=== PATIENT | female | born 1985 | race American Indian/Alaskan Native ===

== ENCOUNTER 2017-01-12 10:46 | Emergency (ER) | payer OTHER, MEDICAID ==
[2017-01-12 11:13] VITALS: BP 132/73
[2017-01-12 11:32] LABS: Bilirubin,Urine NEG (Negative); Blood,Urine MOD (Negative); Ketones,Urine NEG (Negative); Leukocyte Esterase,Urine NEG (Negative); Mucus,Urine 3+ /HPF; Nitrite,Urine NEG (Negative); Protein,Urine <15 mg/dL mg/dL (Negative); Urobilinogen,Urine < 2.0 mg/dL (<2.0)
[2017-01-12] MEDS ORDERED: TYLENOL #3 PO ONE (12:31)
[2017-01-12 13:26] LABS: Basophils % (Auto) 0.7 % (0.0-1.8); Eosinophils % (Auto) 0.9 % (0.0-4.3); Hematocrit 38.5 % (30.3-42.9); Hemoglobin 12.4 gm/dl (10.1-14.3); Mean Corpuscular HGB Conc 32 % (30-34); Mean Corpuscular Hemoglobin 31 pg (28-32); Mean Corpuscular Volume 96 fl (79-97); Platelet Count 201 K/mm3 (140-440); Red Blood Count 4.01 M/mm3 (3.65-5.03)
--- NOTE | 2017-01-12 13:30 | Emergency Department Report ---
HPI - General Chief Complaint: Urogenital-Female Time Seen by Provider: 01/12/17 12:09 - HPI HPI: 31-year-old female presents to ED complaining of vaginal bleeding 2 weeks. Patient states she started something that felt like a period on 12/31/2016 and has not stopped bleeding since then. Patient states initially the brownish heavy clotting and has turned bright red with clotting. Patient states only medication she takes is her just active pills which she started taking November 2016. Patient states she had a regular cycle to last month. Patient also remains severe abdominal cramping pain and generalized aching. Patient states she called her PATTERN P[facility]CHER and was told given him appointment to come in on Saturday but she couldn't wait she came in today to be assessed. Patient denies fevers/chills/nausea/vomiting/abdominal pain/shortness of breath/ chest pain. 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 - Social History Smoking Status: Never Smoker Substance Use Type: None - Medications Home Medications: Home Medications Medication Instructions Recorded Confirmed Last Taken Type Acetaminophen with Codeine 1 each PO Q6H PRN #16 tablet 03/18/15 Unknown Rx [Acetaminophen-Codeine #4 TAB] Cyclobenzaprine [Flexeril 10mg] 10 mg PO Q12H PRN #21 tablet 03/18/[address] [Dylan Dr] 75 mg PO Q12H #30 tablet 03/18/15 Unknown Rx Ibuprofen [Motrin] 800 mg PO Q8HR PRN #30 tablet 01/12/17 Unknown Rx traMADol [Ultram 50 MG tab] 50 mg PO Q6HR PRN #30 tablet 01/12/17 Unknown Rx ED Review of Systems ROS: Stated complaint: ON CYCLE X 2 WKS BAD CRAMPS/ Other details as noted in HPI Constitutional: denies: chills, fever, weakness Eyes: denies: eye pain, eye discharge, vision change ENT: denies: ear pain, throat pain, dental pain, hearing loss, epistaxis, congestion Respiratory: denies: cough, shortness of breath, SOB with exertion, wheezing Cardiovascular: denies: chest pain, palpitations, edema Endocrine: no symptoms reported. denies: increased hunger Gastrointestinal: denies: abdominal pain, nausea, vomiting, diarrhea, constipation, hematemesis, melena Genitourinary: abnormal menses. denies: urgency, dysuria, frequency, hematuria , discharge Musculoskeletal: denies: back pain, joint swelling, arthralgia, myalgia Skin: denies: rash, lesions, change in color, change in hair/nails Neurological: denies: headache, weakness, numbness, paresthesias, confusion, abnormal gait Psychiatric: denies: anxiety, depression, homicidal thoughts, suicidal thoughts Hematological/Lymphatic: denies: easy bleeding, easy bruising Physical Exam - Physical Exam Vital Signs: Vital Signs 01/12/17 11:05 Temperature 98.8 F Pulse Rate 100 H Respiratory 16 Rate Blood Pressure 132/73 O2 Sat by Pulse 99 Oximetry Physical Exam: GENERAL: Alert and oriented x3, no apparent distress, Normal Gait, atraumatic. HEAD: Head is normocephalic and a-traumatic. EYES: Extra ocular muscles are intact. Pupils are equal, round, and reactive to light and accommodation. EARS: symetrical, atraumatic, non tender, ear canal clear and moderate cerumen, tympanic membrance non inflamed. gross auditory nml bilaterally. NOSE: Nose symetrical, Nontender,Nares appeared normal. MOUTH:Mouth is well hydrated and without lesions. . Patent airways. NECK: Supple. Non edematous, No carotid bruits. No lymphadenopathy or thyromegaly. LUNGS: Symetrical with respiration, No wheezing, no rales or crackles, CTAB. HEART: S1, S2 present, regular rate and rhythm without murmur, no rubs, no gallops. ABDOMEN: No organomegaly was noted,Positive bowel sounds, soft, and non- distended. . Nontender to palpation on all Quadrants, NO CVA tenderness. GENITOURINARY: External genitalia without erythema, exudate or discharge. Vaginal vault is without discharge. Cervix is of normal color without lesion. Cervical os is closed. No bleeding noted. Uterus is noted to be of normal size and nontender. No cervical motion tenderness. No masses are palpated. The adnexa are without masses or tenderness. EXTREMITIES/MUSCULOSKELETAL: No cyanosis, clubbing, rash, lesions or edema. Full ROM bilaterally. UE/LE Pulses 2+ bilaterally. LE and UE 5+ strength bilaterally NEUROLOGIC: No focal Deficit, Cranial nerves II through XII are grossly intact. No loss of sensation, PSYCHIATRIC: Mood is congruent with affect, denies suicidal or homicidal ideations. SKIN: Warm and dry, No lesions, No ulceration or induration present. ED Course Vital Signs 01/12/17 11:05 Temperature 98.8 F Pulse Rate 100 H Respiratory 16 Rate Blood Pressure 132/73 O2 Sat by Pulse 99 Oximetry ED Medical Decision Making - Lab Data Result diagrams: 01/12/17 13:16 - Medical Decision Making 31-year-old female presents with dysfunctional uterine bleeding ED course: Patient received 2 tablets of Tylenol in ED. Negative test. Urinalysis normal Ultrasound vaginal ordered. Ultrasound shows complex cyst of the left ovary otherwise normal US CBC within normal limits. Discussed findings with patient. Discussed the patient to take medication as prescribed. Motrin every 8 hours , tramadol every 6 hours for pain. Discussed side effects of oral contraceptives could include prolonged bleeding. Discussed the negative results patient. Discussed to keep her PAT[facility] P[facility] appointment for Saturday. Vital signs are stable patient is in no acute distress. Critical care attestation.: If time is entered above; I have spent that time in minutes in the direct care of this critically ill patient, excluding procedure time. ED Disposition Clinical Impression: Dysfunctional uterine bleeding Ovarian cyst Qualifiers: Laterality: left Qualified Code(s): N83.202 - Unspecified ovarian cyst, left side Menorrhagia Qualifiers: Menorrahagia type: with onset of menstrual periods Qualified Code(s): N92.2 - Excessive menstruation at puberty Disposition: DISCHARGED TO HOME OR SELFCARE Is pt being admited?: No Does the pt Need Aspirin: No Condition: Stable Instructions: Oral Contraceptives (By mouth), Ovarian Cyst (ED), Menorrhagia ( ED) Additional Instructions: Keep your appointment with her PATTERN P[facility]CH[facility] doctor for Saturday. Take Medication as prescribed. Prescriptions: Ibuprofen [Motrin] 800 mg PO Q8HR PRN #30 tablet PRN Reason: Pain traMADol [Ultram 50 MG tab] 50 mg PO Q6HR PRN #30 tablet PRN Reason: Pain Referrals: PRIMARY CARE, [Primary Care Provider] - 3-5 Days Forms: Work/School Release Form(ED) Time of Disposition: 14:09
--- NOTE | 2017-01-12 13:37 | Ultrasound Report ---
Pelvic and transvaginal sonography: History: Pelvic pain/bleeding. Findings: Uterus measures 8.9 x 5.8 x 5.9 cm. Endometrial thickness 3.2 mm. Right ovary 3.3 x 1.7 x 3.2 cm. No mass. Left ovary 4.3 x 2.3 x 4.2 cm. Complex cyst in the left ovary measures 2.5 x 2.3 x 4.1 cm. There is an echogenic focus identified within the complex cyst measuring 0.4 x 0.3 x 0.1 cm. Minimal free fluid in the cul-de-sac. Impression: Complex cyst left ovary.
== END 2017-01-12 14:33 | disposition home or self-care (01) ==
LOC: ED 10:46
DX: N93.8 Other specified abnormal uterine and vaginal bleeding (principal); N83.202 Unspecified ovarian cyst, left side; J45.909 Unspecified asthma, uncomplicated; N92.0 Excessive and frequent menstruation with regular cycle
CPT/HCPCS: 36415; 76830; 76856; 81001; 81025; 85025; 99284

== ENCOUNTER 2019-06-11 21:23 | Emergency (ER) | payer BC, MEDICAID, OTHER ==
--- NOTE | 2019-06-11 21:54 | Event Note ---
ED Screening Note ED Screening Note: dull ache right upper quadrant that began 4 days ago +nausea no V/D normal BM today no urinary sx no PMHx no allergies to meds LNMP: currently on cycle This initial assessment/diagnostic orders/clinical plan/treatment(s) is/are subject to change based on patients health status, clinical progression and re- assessment by fellow clinical providers in the ED. Further treatment and workup at subsequent clinical providers discretion. Patient/guardian urged not to elope from the ED as their condition may be serious if not clinically assessed and managed. Initial orders include: labs, UA, RUQ US
[2019-06-11 21:57] VITALS: BP 116/61
[2019-06-11 22:05] LABS: Basophils # (Auto) 0.1 K/mm3 (0.0-0.1); Basophils % (Auto) 0.7 % (0.0-1.8); Eosinophils # (Auto) 0.1 K/mm3 (0.0-0.4); Eosinophils % (Auto) 1.2 % (0.0-4.3); Hematocrit 45.1 % (30.3-42.9); Hemoglobin 15.5 gm/dl (10.1-14.3); Lymphocytes # (Auto) 2.8 K/mm3 (1.2-5.4); Mean Corpuscular HGB Conc 34 % (30-34); Mean Corpuscular Volume 92 fl (79-97); Monocytes # (Auto) 0.7 K/mm3 (0.0-0.8); Platelet Count 196 K/mm3 (140-440); Red Blood Count 4.91 M/mm3 (3.65-5.03); Red Cell Distribution Width 14.5 % (13.2-15.2)
[2019-06-11 22:27] LABS: Alanine Aminotransferase 27 units/L (7-56); Albumin 3.7 g/dL (3.9-5); BUN/Creatinine Ratio 14; Blood Urea Nitrogen 14 mg/dL (7-17); Calcium 9.3 mg/dL (8.4-10.2); Hemolysis Index 31
--- NOTE | 2019-06-11 23:17 | Ultrasound Report ---
ULTRASOUND ABDOMEN, LIMITED (RIGHT UPPER QUADRANT) INDICATION: RUQ pain. COMPARISON: None available. FINDINGS: PANCREAS: No significant abnormality. LIVER: No significant abnormality. GALLBLADDER: No significant abnormality. BILE DUCTS: No significant abnormality. Common bile duct measures 2.8 mm. FREE FLUID: None. ADDITIONAL FINDINGS: Images of the right kidney are normal. IMPRESSION: No significant sonographic abnormality of the right upper quadrant. No evidence of gallst ones. Signer Name: Molina Choudhary MD Signed: 06/11/2019 11:13 PM Workstation Name: [id number]
[2019-06-11 23:24] LABS: Bilirubin,Urine NEG (Negative); Blood,Urine MOD (Negative); Color,Urine Yellow (Yellow); Mucus,Urine 3+ /HPF; Protein,Urine <15 mg/dL mg/dL (Negative); Urobilinogen,Urine < 2.0 mg/dL (<2.0)
[2019-06-12] MEDS ORDERED: ULTRAM PO ONE (00:54)
[2019-06-12] MEDS ORDERED: LIDOCAINE VISCOUS 2% PO ONE (00:54)
[2019-06-12] MEDS ORDERED: ALUM-MAG HYDROX-SIMETH 200-200-20MG/5ML PO ONE (00:54)
--- NOTE | 2019-06-12 01:22 | Emergency Department Report ---
ED Abdominal Pain HPI - General Chief Complaint: Abdominal Pain Stated Complaint: RAPID HEART BEAT/SHAKES Time Seen by Provider: 06/11/19 21:52 Source: patient Mode of arrival: Ambulatory Limitations: No Limitations - History of Present Illness Initial Comments: pt is s 33 y/o aaf who presents for abd pain described as dull ache right upper quadrant that began 4 days ago +nausea no vomiting normal BM today no urinary sx no PMHx no allergies to meds LNMP: currently on cycle no exacerbating or relieving factors Complaint: abdominal pain Onset/Timin -: days(s) Location: RUQ Radiation: RUQ Migration to: LUQ Severity: moderate Severity scale (0 -10): 4 Quality: aching Consistency: intermittent Improves With: nothing Worsens With: nothing Associated Symptoms: nausea. denies: vomiting, diarrhea, fever, chills, con stipation, dysuria, hematemesis, hematochezia - Related Data LMP Date: 06/11/19 Previous Rx's Medication Instructions Recorded Last Taken Type Acetaminophen with Codeine 1 each PO Q6H PRN #16 tablet 03/18/15 Unknown Rx [Acetaminophen-Codeine #4 TAB] Cyclobenzaprine [Flexeril 10mg] 10 mg PO Q12H PRN #21 tablet 03/18/[address] [Dylan Casillas] 75 mg PO Q12H #30 tablet 03/18/15 Unknown Rx Ibuprofen [Motrin] 800 mg PO Q8HR PRN #30 tablet 01/12/17 Unknown Rx traMADol [Ultram 50 MG tab] 50 mg PO Q6HR PRN #30 tablet 01/12/17 Unknown Rx Famotidine [Pepcid] 20 mg PO BID #60 tablet 06/12/19 Unknown Rx Naproxen [Naprosyn] 500 mg PO BID PRN #30 tablet 06/12/19 Unknown Rx Ondansetron [Zofran Odt] 4 mg PO Q8HR PRN #12 tab.rapdis 06/12/19 Unknown Rx Allergies Allergy/AdvReac Type Severity Reaction Status Date / Time No Known Allergies Allergy Verified 03/18/15 08:07 ED Review of Systems ROS: Stated complaint: RAPID HEART BEAT/SHAKES Other details as noted in HPI Constitutional: denies: chills, fever Eyes: denies: eye pain, eye discharge, vision change ENT: denies: ear pain, throat pain Respiratory: denies: cough, shortness of breath, wheezing Cardiovascular: denies: chest pain, palpitations Endocrine: no symptoms reported Gastrointestinal: abdominal pain, nausea. 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 - Social History Smoking Status: Never Smoker Substance Use Type: None - Medications Home Medications: Home Medications Medication Instructions Recorded Confirmed Last Taken Type Acetaminophen with Codeine 1 each PO Q6H PRN #16 tablet 03/18/15 Unknown Rx [Acetaminophen-Codeine #4 TAB] Cyclobenzaprine [Flexeril 10mg] 10 mg PO Q12H PRN #21 tablet 03/18/[address] [Voltarereji Dr] 75 mg PO Q12H #30 tablet 03/18/15 Unknown Rx Ibuprofen [Motrin] 800 mg PO Q8HR PRN #30 tablet 01/12/17 Unknown Rx traMADol [Ultram 50 MG tab] 50 mg PO Q6HR PRN #30 tablet 01/12/17 Unknown Rx Famotidine [Pepcid] 20 mg PO BID #60 tablet 06/12/19 Unknown Rx Naproxen [Naprosyn] 500 mg PO BID PRN #30 tablet 06/12/19 Unknown Rx Ondansetron [Zofran Odt] 4 mg PO Q8HR PRN #12 tab.rapdis 06/12/19 Unknown Rx ED Physical Exam - General Limitations: No Limitations General appearance: alert, in no apparent distress - Head Head exam: Present: atraumatic, normocephalic - Eye Eye exam: Present: normal appearance, PERRL, EOMI Pupils: Present: normal accommodation - ENT ENT exam: Present: normal orophraynx, mucous membranes moist, TM's normal bilaterally, normal external ear exam - Neck Neck exam: Present: normal inspection, full ROM. Absent: tenderness, meningismus, lymphadenopathy, thyromegaly - Respiratory Respiratory exam: Present: normal lung sounds bilaterally. Absent: respiratory distress, wheezes, rhonchi, chest wall tenderness - Cardiovascular Cardiovascular Exam: Present: regular rate, normal rhythm, normal heart sounds. Absent: systolic murmur, diastolic murmur, rubs, gallop - GI/Abdominal GI/Abdominal exam: Present: soft, tenderness (RUQ ), normal bowel sounds. Absent: distended, guarding, rebound, rigid, bruit, hernia - Rectal Rectal exam: Present: deferred - Extremities Exam Extremities exam: Present: normal inspection, full ROM, normal capillary refill. Absent: tenderness, pedal edema, joint swelling, calf tenderness - Back Exam Back exam: Present: normal inspection, full ROM. Absent: tenderness, CVA tenderness (R), CVA tenderness (L), muscle spasm, paraspinal tenderness, vertebral tenderness, rash noted - Neurological Exam Neurological exam: Present: alert, oriented X3, CN II-XII intact, normal gait - Psychiatric Psychiatric exam: Present: normal affect, normal mood - Skin Skin exam: Present: warm, dry, intact, normal color. Absent: rash ED Course Vital Signs 06/11/19 21:52 Temperature 98.9 F Pulse Rate 95 H Respiratory 18 Rate Blood Pressure 116/61 O2 Sat by Pulse 100 Oximetry ED Medical Decision Making - Lab Data Result diagrams: 06/11/19 21:56 06/11/19 21:56 Lab Results 06/11/19 06/11/19 06/11/19 Range/Units 21:56 21:56 21:56 WBC 8.9 (4.5-11.0) K/mm3 RBC 4.91 (3.65-5.03) M/mm3 Hgb 15.5 H (10.1-14.3) gm/dl Hct 45.1 H (30.3-42.9) % MCV 92 (79-97) fl MCH 32 (28-32) pg MCHC 34 (30-34) % RDW 14.5 (13.2-15.2) % Plt Count 196 (140-440) K/mm3 Lymph % (Auto) 31.0 (13.4-35.0) % [place] % (Auto) 8.0 H (0.0-7.3) % Eos % (Auto) 1.2 (0.0-4.3) % Baso % (Auto) 0.7 (0.0-1.8) % Lymph # 2.8 (1.2-5.4) K/mm3 [place] # 0.7 (0.0-0.8) K/mm3 Eos # 0.1 (0.0-0.4) K/mm3 Baso # 0.1 (0.0-0.1) K/mm3 Seg Neutrophils % 59.1 (40.0-70.0) % Seg Neutrophils # 5.3 (1.8-7.7) K/mm3 Sodium 141 (137-145) mmol/L Potassium 4.2 (3.6-5.0) mmol/L Chloride 105.7 (98-107) mmol/L Carbon Dioxide 24 (22-30) mmol/L Anion Gap 16 mmol/L BUN 14 (7-17) mg/dL Creatinine 1.0 (0.7-1.2) mg/dL Estimated GFR > 60 ml/min BUN/Creatinine Ratio 14 % Glucose 98 (65-100) mg/dL Calcium 9.3 (8.4-10.2) mg/dL Total Bilirubin 0.20 (0.1-1.2) mg/dL AST 19 (5-40) units/L ALT 27 (7-56) units/L Alkaline Phosphatase 71 (35-129) units/L Total Protein 7.1 (6.3-8.2) g/dL Albumin 3.7 L (3.9-5) g/dL Albumin/Globulin Ratio 1.1 % Lipase 24 (13-60) units/L HCG, Qual Negative (Negative) Urine Color (Yellow) Urine Turbidity (Clear) Urine pH (5.0-7.0) Ur Specific [place] (1.003-1.030) Urine Protein (Negative) mg/dL Urine Glucose (UA) (Negative) mg/dL Urine Ketones (Negative) mg/dL Urine Blood (Negative) Urine Nitrite (Negative) Urine Bilirubin (Negative) Urine Urobilinogen (<2.0) mg/dL Ur Leukocyte Esterase (Negative) Urine WBC (Auto) (0.0-6.0) /HPF Urine RBC (Auto) (0.0-6.0) /HPF U Epithel Cells (Auto) (0-13.0) /HPF Urine Mucus /HPF 06/11/19 Range/Units 22:18 WBC (4.5-11.0) K/mm3 RBC (3.65-5.03) M/mm3 Hgb (10.1-14.3) gm/dl Hct (30.3-42.9) % MCV (79-97) fl MCH (28-32) pg MCHC (30-34) % RDW (13.2-15.2) % Plt Count (140-440) K/mm3 Lymph % (Auto) (13.4-35.0) % [place] % (Auto) (0.0-7.3) % Eos % (Auto) (0.0-4.3) % Baso % (Auto) (0.0-1.8) % Lymph # (1.2-5.4) K/mm3 [place] # (0.0-0.8) K/mm3 Eos # (0.0-0.4) K/mm3 Baso # (0.0-0.1) K/mm3 Seg Neutrophils % (40.0-70.0) % Seg Neutrophils # (1.8-7.7) K/mm3 Sodium (137-145) mmol/L Potassium (3.6-5.0) mmol/L Chloride (98-107) mmol/L Carbon Dioxide (22-30) mmol/L Anion Gap mmol/L BUN (7-17) mg/dL Creatinine (0.7-1.2) mg/dL Estimated GFR ml/min BUN/Creatinine Ratio % Glucose (65-100) mg/dL Calcium (8.4-10.2) mg/dL Total Bilirubin (0.1-1.2) mg/dL AST (5-40) units/L ALT (7-56) units/L Alkaline Phosphatase (35-129) units/L Total Protein (6.3-8.2) g/dL Albumin (3.9-5) g/dL Albumin/Globulin Ratio % Lipase (13-60) units/L HCG, Qual (Negative) Urine Color Yellow (Yellow) Urine Turbidity Clear (Clear) Urine pH 5.0 (5.0-7.0) Ur Specific [place] 1.027 (1.003-1.030) Urine Protein <15 mg/dl (Negative) mg/dL Urine Glucose (UA) Neg (Negative) mg/dL Urine Ketones Neg (Negative) mg/dL Urine Blood Mod (Negative) Urine Nitrite Neg (Negative) Urine Bilirubin Neg (Negative) Urine Urobilinogen < 2.0 (<2.0) mg/dL Ur Leukocyte Esterase Neg (Negative) Urine WBC (Auto) 1.0 (0.0-6.0) /HPF Urine RBC (Auto) 1.0 (0.0-6.0) /HPF U Epithel Cells (Auto) 3.0 (0-13.0) /HPF Urine Mucus 3+ /HPF - Radiology Data Radiology results: report reviewed, image reviewed Ordering Physician: DACIA ROBLES Date of Service: 06/11/19 Procedure(s): XR ribs UNI w PA chest 3+V LT Accession Number(s): [id number] cc: DACIA ROBLES Fluoro Time In Minutes: LEFT RIBS PLUS CHEST 3 VIEWS INDICATION / CLINICAL INFORMATION: left chest wall pain/left rib pain s/p fall COMPARISON: 2 views of the chest from 09/05/2018. FINDINGS: BONES and JOINT(S): No acute fracture or subluxation. No significant arthritis. There is moderate thoracolumbar levoscoliosis. SOFT TISSUES: No significant abnormality. ADDITIONAL FINDINGS: The lungs are clear without a pneumothorax or pleural eff usion. The cardiomediastinal silhouette is unremarkable. IMPRESSION: No acute abnormality of the left ribs. Signer Name: Florencio Guillory MD Signed: 06/11/2019 10:41 PM Workstation Name: [id number] Transcribed By: [place] Dictated By: Florencio Guillory MD Electronically Authenticated By: Florencio Guillory MD Signed Date/Time: 06/11/192240 DD/ 39 TD/TT: - Medical Decision Making US normal no gall stones, no cmd dilatation, no abnormality, labs normal cr: 0.8 , hcg: normal. , pt is now tolerating po intake without increased n/v there is no fever no chills plan, zofran, naproxen, pepcid follow up with pcp in 2-3 days return to emergency if symptoms worsen. Critical care attestation.: If time is entered above; I have spent that time in minutes in the direct care of this critically ill patient, excluding procedure time. ED Disposition Clinical Impression: Abdominal pain Qualifiers: Abdominal location: right upper quadrant Qualified Code(s): R10.11 - Right upper quadrant pain Disposition: - TO HOME OR SELFCARE Is pt being admited?: No Does the pt Need Aspirin: No Condition: Stable Instructions: Abdominal Pain (ED) Prescriptions: Naproxen [Naprosyn] 500 mg PO BID PRN #30 tablet PRN Reason: pain Famotidine [Pepcid] 20 mg PO BID #60 tablet Ondansetron [Zofran Odt] 4 mg PO Q8HR PRN #12 tab.rapdis PRN Reason: Nausea And Vomiting Referrals: PRIMARY CARE, [Primary Care Provider] - 3-5 Days Forms: Work/School Release Form(ED) Time of Disposition: 01:34
== END 2019-06-12 01:55 | disposition home or self-care (01) ==
LOC: ED 21:23
DX: R10.11 Right upper quadrant pain (principal); R11.0 Nausea; J45.909 Unspecified asthma, uncomplicated; Z98.890 Other specified postprocedural states; Z79.899 Other long term (current) drug therapy
CPT/HCPCS: 36415; 76705; 80053; 81001; 83690; 84703; 85025; 99284